=== PATIENT | female | born 1955 | race Hispanic/Latino ===

== ENCOUNTER 2020-12-28 17:26 | Emergency (ER) | payer BC ==
[2020-12-28 17:56] LABS: Urine Blood 3+ (Negative); Urine Glucose Negative (Negative); Urine Protein 1+ (Negative); Urine Specific Gravity 1.015 (1.005-1.030)
--- NOTE | 2020-12-28 18:47 | RAD REPORT ---
EXAM DESCRIPTION: CT - Stone Protocol - 12/28/2020 6:26 pm CLINICAL HISTORY: Abdominal pain. Right flank pain COMPARISON: None. TECHNIQUE: Computed axial tomography of the abdomen pelvis was obtained without oral or IV contrast. Lack of IV and oral contrast limits evaluation of solid organs, bowel, and vessels. Coronal reformat kari images were obtained and reviewed. All CT scans are performed using dose optimization technique as appropriate and may include automated exposure control or mA/KV adjustment according to patient size. FINDINGS: A renal calculus is not seen. Moderate to marked right hydronephrosis. Right ureter is dil ated. 6 millimeter calculus distal right ureter. Cholecystectomy The liver, spleen, pancreas and adrenals appear grossly normal There is no evidence of diverticulitis. Hysterectomy. No adnexal mass Small umbilical hernia IMPRESSION: 6 millimeter calculus distal right ureter resulting in moderate to marked right hydronep hrosis
[2020-12-28 19:27] LABS: Urine Amorphous Sediment 4+ /HPF (NONE SEEN); Urine Bacteria <20 /HPF (<20); Urine RBC >50 /HPF (NONE SEEN)
[2020-12-28 20:05] LABS: Absolute Lymphocytes (CBC) 1.6 K/uL (0.7-4.9); Basophils % 0.6 % (0-1.3); Hematocrit 42.7 % (36.0-45.0); MPV 9.8 fL (7.6-11.3); RBC Red Blood Cell Count 4.94 M/uL (3.86-4.86)
[2020-12-28] MEDS ORDERED: TAMSULOSIN 0.4 MG SR CAP ONE ×2 (20:19→20:24)
[2020-12-28] MEDS ORDERED: Magnesium Sulfate 2gm IVPB 2 G/50 ML BAG IV ONE (20:19)
[2020-12-28 20:24] LABS: Potassium 3.9 mmol/L (3.5-5.1)
[2020-12-28] MEDS ORDERED: MAGNESIUM SULFATE 1 gm IVPB 0 GM/0 ML BAG IV ONE (20:24)
[2020-12-28] MEDS ORDERED: KETOROLAC 30 MG/ML INJ ONE (20:24)
[2020-12-28] MEDS ORDERED: FENTANYL CITR 100 MCG/2 ML ONE (20:24)
[2020-12-28] MEDS ORDERED: ONDANSETRON 4 MG/2 ML VIAL ONE (20:24)
--- NOTE | 2020-12-28 21:07 | EDPHYS ---
Physician Documentation [facility] Name: Brigitte Sanches Age: 65 yrs Sex: Female : 1955 Arrival Date: 12/28/2020 Time: 17:28 Bed 5 Private MD: ED Physician Jay Chong HPI: 12/28 21:04 This 65 yrs old Female presents to ER via Ambulatory with complaints of kb Urinary Problem, Low Back Pain. 21:04 The patient presents with flank pain, on the right, urinary symptoms, frequency. Onset: kb The symptoms/episode began/occurred today. Modifying factors: The symptoms are alleviated by nothing, the symptoms are aggravated by nothing. Associated signs and symptoms: Pertinent positives: urinary frequency, Pertinent negatives: constipation, cramping, diarrhea, dyspareunia, dysuria, fever, hematuria, nausea, vaginal bleeding, vaginal discharge, vomiting. Severity of symptoms: At their worst the symptoms were moderate, in the emergency department the symptoms are unchanged. The patient has experienced similar episodes in the past, several times. The patient has not recently seen a physician. Patient reports flank pain and urinary frequency. Reports history of kidney stones. States pain is similar to previous kidney stones. Historical: - Allergies: 17:38 No Known Allergies; hb - Immunization history:: Adult Immunizations up to date. - Social history:: Smoking status: Patient denies any tobacco usage or history of. ROS: 20:31 Constitutional: Negative for fever, chills, and weight loss. kb 20:31 : Positive for urinary symptoms, flank pain, urinary frequency. 20:31 All other systems are negative. Exam: 20:31 Constitutional: This is a well developed, well nourished patient who is awake, alert, kb and in no acute distress. Head/Face: Normocephalic, atraumatic. ENT: Moist Mucous membranes Cardiovascular: Regular rate and rhythm with a normal S1 and S2. No gallops, murmurs, or rubs. No pulse deficits. Respiratory: Respirations even and unlabored. No increased work of breathing, no retractions or nasal flaring. Abdomen/GI: Soft, non-tender. No distention Skin: Warm, dry with normal turgor. Normal color. MS/ Extremity: Pulses equal, no cyanosis. Neurovascular intact. Full, normal range of motion. Neuro: Awake and alert, GCS 15, oriented to person, place, time, and situation. Moves all extremities. Normal gait. Psych: Awake, alert, with orientation to person, place and time. Behavior, mood, and affect are within normal limits. 20:31 Back: CVA tenderness, that is moderate, is noted on the right. Vital Signs: 17:37 BP 124 / 72; Pulse 83; Resp 16; Temp 98.1; Pulse Ox 100% on R/A; Weight 69.4 kg; Height hb 5 ft. 2 in. (157.48 cm); Pain 9/10; 20:21 BP 132 / 72; Pulse 56; Resp 18; Pulse Ox 100% ; ea 21:48 BP 127 / 68; Pulse 61; Resp 16; Pulse Ox 99% on R/A; Pain 0/10; em 17:37 Body Mass Index 27.98 (69.40 kg, 157.48 cm) hb MDM: 17:40 Patient medically screened. kb 20:30 Data reviewed: vital signs, nurses notes. Data interpreted: Pulse oximetry: on room air kb is 100 %. Interpretation: normal. 20:31 Counseling: I had a detailed discussion with the patient and/or guardian regarding: the kb historical points, exam findings, and any diagnostic results supporting the discharge/admit diagnosis, lab results, radiology results, the need for outpatient follow up, a urologist, to return to the emergency department if symptoms worsen or persist or if there are any questions or concerns that arise at home. 21:04 ED course: Pain controlled. Pt states she is feeling better. . kb 12/28 17:40 Order name: Urine Microscopic Only; Complete Time: 19:28 kb 12/28 17:55 Order name: Urine Dipstick-Ancillary; Complete Time: 17:59 EDWA 12/28 17:40 Order name: CT Stone Protocol; Complete Time: 18:53 kb 12/28 18:53 Order name: CBC with Diff; Complete Time: 20:07 kb 12/28 18:53 Order name: Basic Metabolic Panel; Complete Time: 20:29 kb 12/28 19:28 Order name: Urine Culture EDWA 12/28 17:40 Order name: Urine Dipstick-Ancillary (obtain specimen); Complete Time: 19:54 kb 12/28 18:53 Order name: IV Start; Complete Time: 20:02 kb Administered Medications: 20:09 Drug: Zofran (Ondansetron) 4 mg Route: IVP; Site: right antecubital; ea 20:47 Follow up: Response: No adverse reaction; Marked relief of symptoms; Nausea is decreasedem 20:09 Drug: fentaNYL (PF) 25 mcg Route: IVP; Site: right antecubital; ea 20:47 Follow up: Response: No adverse reaction; Marked relief of symptoms; Pain is decreased em 20:10 Drug: Magnesium Sulfate 1 grams Route: IVPB; Infused Over: 30 mins; Site: right ea antecubital; 21:36 Follow up: Response: No adverse reaction; IV Status: Completed infusion; IV Intake: em 100ml 20:10 Drug: Flomax (tamsulosin) 0.4 mg Route: PO; ea 20:47 Follow up: Response: No adverse reaction em 20:47 Drug: Ketorolac 30 mg Route: IVP; Site: right antecubital; em 21:36 Follow up: Response: No adverse reaction; Marked relief of symptoms; Pain is decreased em 21:47 Drug: Rocephin (cefTRIAXone) 1 grams Route: IV; Rate: calculated rate; Site: right em antecubital; 21:47 Follow up: Response: Medication administered at discharge.; IV Status: Completed em infusion; IV Intake: 10ml Disposition: 12/29 09:17 Co-signature as Attending Physician, Jay Chong MD I agree with the assessment and lisa plan of care. Disposition Summary: 12/28/20 21:06 Discharge Ordered Location: Home kb Condition: Stable kb Diagnosis - Calculus of kidney kb Followup: kb - With: Emergency Department - When: As needed - Reason: Worsening of condition Followup: kb - With: Private Physician - When: 2 - 3 days - Reason: Recheck today's complaints, Continuance of care, Re-evaluation by your physician Discharge Instructions: - Discharge Summary Sheet kb - Kidney Stones, [id number] kb Forms: - Medication Reconciliation Form kb - Thank You Letter kb - Antibiotic Education kb - Prescription Opioid Use kb Prescriptions: - Flomax 0.4 mg Oral capsule - take 1 capsule by ORAL route once daily As needed; 10 capsule; Refills: 0, kb Product Selection Permitted - Augmentin 875-125 mg Oral Tablet - take 1 tablet by ORAL route every 12 hours for 10 days; 20 tablet; Refills: 0, kb Product Selection Permitted - Zofran 4 mg Oral Tablet - take 1 tablet by ORAL route every 6 hours As needed; 20 tablet; Refills: 0, kb Product Selection Permitted - Diclofenac Sodium 75 mg Oral tablet,delayed release (DR/EC) - take 1 tablet by ORAL route 2 times per day As needed; 30 tablet; Refills: 0, kb Product Selection Permitted Signatures: Dispatcher [employer] Stefany Gilbert, GLASS FURNACE OPERATOR-C GLASS FURNACE OPERATOR-Jay Del Valle MD MD cha Munoz, Edgar, RN RN Echo Cuevas, RN RN Sima Prado RN RN ea
--- NOTE | 2020-12-28 21:07 | ER ---
Nurse's Notes [facility] Name: Brigitte Sanches Age: 65 yrs Sex: Female : 1955 Arrival Date: 12/28/2020 Time: 17:28 Bed 5 Private MD: Diagnosis: Calculus of kidney Presentation: 12/28 17:37 Chief complaint: RLQ pain that radiates to right flank x 2 days. Coronavirus screen: At this time, the client does not indicate any symptoms associated with coronavirus-19. Ebola Screen: No symptoms or risks identified at this time. Initial Sepsis Screen: Does the patient meet any 2 criteria? No. Patient's initial sepsis screen is negative. Does the patient have a suspected source of infection? No. Patient's initial sepsis screen is negative. Risk Assessment: Do you want to hurt yourself or someone else? Patient reports no desire to harm self or others. Onset of symptoms was December 27, 2020. 17:37 Method Of Arrival: Ambulatory hb 17:37 Acuity: PATSY 3 hb Historical: - Allergies: 17:38 No Known Allergies; hb - Immunization history:: Adult Immunizations up to date. - Social history:: Smoking status: Patient denies any tobacco usage or history of. Screenin:11 Abuse screen: Denies threats or abuse. Nutritional screening: No deficits noted. ea Tuberculosis screening: No symptoms or risk factors identified. Fall Risk IV access (20 points). Assessment: 20:10 General: Appears in no apparent distress. Behavior is calm, cooperative, appropriate ea for age. Neuro: Level of Consciousness is awake, alert, obeys commands, Oriented to person, place, time. Cardiovascular: Patient's skin is warm and dry. Respiratory: Airway is patent Respiratory effort is even, unlabored, Respiratory pattern is regular, symmetrical. Derm: Skin is pink, warm \T\ dry. 20:12 Pain: Complains of pain in low back area. ea 21:48 Reassessment: Patient appears in no apparent distress at this time. Patient and/or em family updated on plan of care and expected duration. Pain level reassessed. Patient is alert, oriented x 3, equal unlabored respirations, skin warm/dry/pink. Patient denies pain at this time. Patient states symptoms have improved. Vital Signs: 17:37 BP 124 / 72; Pulse 83; Resp 16; Temp 98.1; Pulse Ox 100% on R/A; Weight 69.4 kg; Height hb 5 ft. 2 in. (157.48 cm); Pain 9/10; 20:21 BP 132 / 72; Pulse 56; Resp 18; Pulse Ox 100% ; ea 21:48 BP 127 / 68; Pulse 61; Resp 16; Pulse Ox 99% on R/A; Pain 0/10; em 17:37 Body Mass Index 27.98 (69.40 kg, 157.48 cm) hb ED Course: 17:28 Patient arrived in ED. rg4 17:36 [facility] kb 17:36 Jay Chong MD is Attending Physician. kb 17:38 Triage completed. hb 17:38 Arm band placed on. hb 18:26 CT Stone Protocol In Process Unspecified. EDMS 19:20 Initial lab(s) drawn, by me, sent to lab. Inserted saline lock: 20 gauge in right em antecubital area, using aseptic technique. Blood collected. 19:51 Karl Jimenez, RN is Primary Nurse. em 20:11 Patient has correct armband on for positive identification. Bed in low position. Call ea light in reach. Side rails up X2. 21:48 No provider procedures requiring assistance completed. IV discontinued, intact, em bleeding controlled, No redness/swelling at site. Pressure dressing applied. Administered Medications: 20:09 Drug: Zofran (Ondansetron) 4 mg Route: IVP; Site: right antecubital; ea 20:47 Follow up: Response: No adverse reaction; Marked relief of symptoms; Nausea is decreasedem 20:09 Drug: fentaNYL (PF) 25 mcg Route: IVP; Site: right antecubital; ea 20:47 Follow up: Response: No adverse reaction; Marked relief of symptoms; Pain is decreased em 20:10 Drug: Magnesium Sulfate 1 grams Route: IVPB; Infused Over: 30 mins; Site: right ea antecubital; 21:36 Follow up: Response: No adverse reaction; IV Status: Completed infusion; IV Intake: em 100ml 20:10 Drug: Flomax (tamsulosin) 0.4 mg Route: PO; ea 20:47 Follow up: Response: No adverse reaction em 20:47 Drug: Ketorolac 30 mg Route: IVP; Site: right antecubital; em 21:36 Follow up: Response: No adverse reaction; Marked relief of symptoms; Pain is decreased em 21:47 Drug: Rocephin (cefTRIAXone) 1 grams Route: IV; Rate: calculated rate; Site: right em antecubital; 21:47 Follow up: Response: Medication administered at discharge.; IV Status: Completed em infusion; IV Intake: 10ml Intake: 21:36 IV: 100ml; Total: 100ml. em 21:47 IV: 10ml; Total: 110ml. em Outcome: 21:06 Discharge ordered by . kb 21:48 Discharged to home ambulatory, with family. em 21:48 Condition: improved 21:48 Discharge instructions given to patient, family, Instructed on discharge instructions, follow up and referral plans. medication usage, Demonstrated understanding of instructions, follow-up care, medications, Prescriptions given X 4. 21:49 Patient left the ED. em Signatures: Dispatcher [employer] EDID Stefany Mota, EMBOSSING CALENDER OPERATOR-C EMBOSSING CALENDER OPERATOR-Karl Tapia, CESAR RN Echo Young, Mahsa Acevedo RN rg4 Sima Foley RN RN ea Corrections: (The following items were deleted from the chart) 20:12 20:10 Neuro: Level of Consciousness is awake, alert, obeys commands, Oriented to ea person, place, time, ea
[2020-12-28] MEDS ORDERED: CEFTRIAXONE/SWI 1gm 1 GM/10 ML SYR ONE (21:54)
[2020-12-28 22:04] VITALS: TEMP 98.1
[2020-12-28 22:07] VITALS: BP 127/68; O2SAT 99
== END 2020-12-28 21:49 | disposition home or self-care (01) ==
LOC: ER 17:26
DX: N20.0 Calculus of kidney (principal); Z87.442 Personal history of urinary calculi
CPT/HCPCS: 96365; 87088; 85025; 87086; 80048; 36415; 76377; 74176; 96375; 99284; J3010; J3475; J0696; J2405; 81003; 81015; 87077; 87186